=== PATIENT | male | born 1955 | race Caucasian/White ===

== ENCOUNTER → 2018-12-08 | Outpatient (CLI) | payer OTHER ==
--- NOTE | 2018-12-08 08:23 | MR ---
EXAMINATION TYPE: MR knee RT wo con DATE OF EXAM: 12/08/2018 COMPARISON: Outside right knee x-ray November 25, 2018 HISTORY: Right knee pain per order. Inner knee pain and swelling for 1 month. History of knee surge ry TECHNIQUE: Multiplanar, multisequence images of the knee is performed without IV contrast. FINDINGS: MEDIAL MENISCUS: Anterior and posterior horns are intact without tear. LATERAL MENISCUS: Anterior and posterior horns are intact without tear. CRUCIATE LIGAMENTS: The anterior and posterior cruciate ligaments are intact and unremarkable. COLLATERAL LIGAMENTS: The medial collateral ligament and lateral collateral ligament complex are inta ct and unremarkable. EXTENSOR MECHANISM: Visualized quadriceps and patellar tendons are intact. EFFUSION: No significant suprapatellar joint effusion. POPLITEAL CYST: No popliteal/dominguez cyst. TRICOMPARTMENT SPACES: Mild to moderate tricompartment joint space loss is present most prominent pat ellofemoral compartment. No significant spurring is seen. CARTILAGE: There is some cartilaginous fissuring medial tibiofemoral compartment seen best sagittal i mage 10. Single focus of chondromalacia patella with full-thickness cleft sagittal image 14 is noted. BONE MARROW SIGNAL: At level of cartilaginous loss medial tibiofemoral compartment there is heterogen eous diminished T1 and increased T2 signal involving the lateral aspect of the distal medial femoral upper condyle measuring roughly 1.4 cm AP diameter sagittal image 9 x 1.0 cm transversely coronal anjali ge 19. At level of chondromalacia patella there is focus of heterogeneous increased T2 signal sagittal image 14 and axial image 18 involving the posterior patellar pole. OTHER: No additional significant abnormality is appreciated. IMPRESSION: 1. No meniscal or ligamentous tear is seen. 2. Mild to moderate tricompartment degenerative changes, focal osteochondral involvement patellofemor al and medial tibiofemoral compartments noted as detailed above.
== END | disposition home or self-care (01) ==
LOC: RADMRIMAIN 06:07
PROVIDERS: ATTEND Orthopaedic Surgery
DX: M17.11 Unilateral primary osteoarthritis, right knee (principal)

== ENCOUNTER 2020-04-01 10:37 | Emergency (ER) | payer OTHER ==
[2020-04-01 10:46] VITALS: RESP 18; TEMP 97.5
[2020-04-01] MEDS ORDERED: SODIUM CHLORIDE 0.9% 1,000 ML IV STA ×2 (11:03)
[2020-04-01] MEDS ORDERED: ONDANSETRON 4 MG/2 ML VIAL IVP STA (11:03)
[2020-04-01] MEDS ORDERED: MORPHINE SULFATE 2 MG/ML SYRINGE IVP STA (11:03)
[2020-04-01] MEDS ORDERED: KETOROLAC 30 MG/ML 1 ML VIAL IVP STA (11:03)
[2020-04-01 11:21] LABS: Basophils % (A) 0 %; Eosinophils # (A) 0.1 k/uL (0-0.7); Eosinophils % (A) 2 %; HCT 44.8 % (39.0-53.0); HGB 14.9 gm/dL (13.0-17.5); Lymphocytes # (A) 1.2 k/uL (1.0-4.8); Lymphocytes % (A) 14 %; MCHC 33.3 g/dL (31.0-37.0); MCV 93.1 fL (80.0-100.0); Mean Platelet Volume 6.8; Monocytes # (A) 0.7 k/uL (0-1.0); Monocytes % (A) 8 %; Neutrophils # (A) 6.3 k/uL (1.3-7.7); Neutrophils % (A) 74 %; Platelet Count 258 k/uL (150-450); RBC 4.81 m/uL (4.30-5.90); RDW 12.3 % (11.5-15.5); WBC 8.5 k/uL (3.8-10.6)
--- NOTE | 2020-04-01 11:29 | ED ---
Abdominal Pain HPI - General Chief Complaint: Abdominal Pain Stated Complaint: diverticulitis Time Seen by Provider: 04/01/20 10:49 Source: patient, RN notes reviewed, old records reviewed Mode of arrival: ambulatory Limitations: no limitations - History of Present Illness Initial Comments: Patient is a pleasant 64-year-old male presents emergency from today with chief complaint of left lower quadrant lower quadrant abdominal pain, states that he's had some episodes of diarrhea the past few days.. He is concerned that he has diverticulitis. Habits the past. Patient reports these had no current fevers or chills but didn't fill low-grade temperatures for the past week. Patient states that he has no chest pain shortness breath or cough. - Related Data Home Medications Medication Instructions Recorded Confirmed ALPRAZolam [Xanax] 0.5 mg PO BID PRN 04/01/20 04/01/20 Acetaminophen Tab [Tylenol] 650 mg PO Q6H PRN 04/01/20 04/01/20 Cholecalciferol [Vitamin D3 (25 1,000 unit PO DAILY 04/01/20 04/01/20 Mcg = 1000 Iu)] Citalopram Hydrobromide 20 mg PO DAILY 04/01/20 04/01/20 [Citalopram HBr] Fish Oil/Dha/Epa [Fish Oil 1,200 1 each PO DAILY 04/01/20 04/01/20 mg Fish Oil] Ibuprofen [Advil] 200 mg PO Q8H PRN 04/01/20 04/01/20 Montelukast [Singulair] 10 mg PO HS 04/01/20 04/01/20 Multivitamins, Thera [Multivitamin 1 tab PO DAILY 04/01/20 04/01/20 (formulary)] Previous Rx's Medication Instructions Recorded Amoxic-Pot Clav 875-125Mg 1 tab PO BID 10 Days #20 tab 04/01/20 [Augmentin 875-125] Allergies Allergy/AdvReac Type Severity Reaction Status Date / Time No Known Allergies Allergy Verified 04/01/20 11:39 Review of Systems ROS Statement: Those systems with pertinent positive or pertinent negative responses have been documented in the HPI. ROS Other: All systems not noted in ROS Statement are negative. 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 Past Psychological History: Anxiety Smoking Status: Former smoker Past Alcohol Use History: Occasional Past Drug Use History: Marijuana General Exam - General Exam Comments Initial Comments: Alert and oriented 64-year-old male. No distress. Limitations: no limitations Head exam: Present: atraumatic, normocephalic, normal inspection Eye exam: Present: normal appearance, PERRL, EOMI. Absent: scleral icterus, conjunctival injection, periorbital swelling ENT exam: Present: normal exam, mucous membranes moist Neck exam: Present: normal inspection. Absent: tenderness, meningismus, lymphadenopathy Respiratory exam: Present: normal lung sounds bilaterally. Absent: respiratory distress, wheezes, rales, rhonchi, stridor Cardiovascular Exam: Present: regular rate GI/Abdominal exam: Present: soft, tenderness (Left lower quadrant tenderness), normal bowel sounds. Absent: distended, guarding, rebound, rigid Extremities exam: Present: normal inspection, full ROM, normal capillary refill. Absent: tenderness, pedal edema, joint swelling, calf tenderness Back exam: Present: normal inspection Neurological exam: Present: alert, oriented X3, CN II-XII intact Psychiatric exam: Present: normal affect, normal mood Skin exam: Present: warm, dry, intact, normal color. Absent: rash Course Vital Signs 04/01/20 04/01/20 10:42 13:01 Temperature 97.5 F L Pulse Rate 86 69 Respiratory 18 18 Rate Blood Pressure 120/79 100/62 O2 Sat by Pulse 98 98 Oximetry Medical Decision Making - Medical Decision Making 64-year-old male presents emergency room CO2 plan of lower abdominal pain, comes Patient after having some diarrhea. His concern for diverticulitis. Blood work was reviewed and unremarkable. UA and pelvic testing are negative. Due to persistent tenderness Patient had computed tomography scan completed. There is evidence of a complicated diverticular disease. Patient will be certain this time, states that he has an adverse reaction with Flagyl so Patient will be prescribed Augmentin. Discussed close follow-up with primary care doctor and all questions were answered. Return parameters were discussed. - Lab Data Result diagrams: 04/01/20 10:50 04/01/20 10:50 Lab Results 04/01/20 04/01/20 04/01/20 Range/Units 10:50 10:50 10:50 WBC 8.5 (3.8-10.6) k/uL RBC 4.81 (4.30-5.90) m/uL Hgb 14.9 (13.0-17.5) gm/dL Hct 44.8 (39.0-53.0) % MCV 93.1 (80.0-100.0) fL MCH 31.0 (25.0-35.0) pg MCHC 33.3 (31.0-37.0) g/dL RDW 12.3 (11.5-15.5) % Plt Count 258 (150-450) k/uL Neutrophils % 74 % Lymphocytes % 14 % Monocytes % 8 % Eosinophils % 2 % Basophils % 0 % Neutrophils # 6.3 (1.3-7.7) k/uL Lymphocytes # 1.2 (1.0-4.8) k/uL Monocytes # 0.7 (0-1.0) k/uL Eosinophils # 0.1 (0-0.7) k/uL Basophils # 0.0 (0-0.2) k/uL PT 9.7 (9.0-12.0) sec INR 0.9 (<1.2) APTT 23.6 (22.0-30.0) sec Sodium 135 L (137-145) mmol/L Potassium 4.1 (3.5-5.1) mmol/L Chloride 102 (98-107) mmol/L Carbon Dioxide 22 (22-30) mmol/L Anion Gap 11 mmol/L BUN 13 (9-20) mg/dL Creatinine 0.76 (0.66-1.25) mg/dL Est GFR (CKD-EPI)AfAm >90 (>60 ml/min/1.73 sqM) Est GFR (CKD-EPI)NonAf >90 (>60 ml/min/1.73 sqM) Glucose 108 H (74-99) mg/dL Plasma Lactic Acid Ant (0.7-2.0) mmol/L Calcium 9.4 (8.4-10.2) mg/dL Magnesium 2.1 (1.6-2.3) mg/dL Total Bilirubin 0.9 (0.2-1.3) mg/dL AST 33 (17-59) U/L ALT 37 (4-49) U/L Alkaline Phosphatase 63 (38-126) U/L Total Protein 7.3 (6.3-8.2) g/dL Albumin 4.4 (3.5-5.0) g/dL Amylase 57 (30-110) U/L Lipase 98 (23-300) U/L Coronavirus (PCR) (Not Detectd) 04/01/20 04/01/20 Range/Units 10:50 11:30 WBC (3.8-10.6) k/uL RBC (4.30-5.90) m/uL Hgb (13.0-17.5) gm/dL Hct (39.0-53.0) % MCV (80.0-100.0) fL MCH (25.0-35.0) pg MCHC (31.0-37.0) g/dL RDW (11.5-15.5) % Plt Count (150-450) k/uL Neutrophils % % Lymphocytes % % Monocytes % % Eosinophils % % Basophils % % Neutrophils # (1.3-7.7) k/uL Lymphocytes # (1.0-4.8) k/uL Monocytes # (0-1.0) k/uL Eosinophils # (0-0.7) k/uL Basophils # (0-0.2) k/uL PT (9.0-12.0) sec INR (<1.2) APTT (22.0-30.0) sec Sodium (137-145) mmol/L Potassium (3.5-5.1) mmol/L Chloride (98-107) mmol/L Carbon Dioxide (22-30) mmol/L Anion Gap mmol/L BUN (9-20) mg/dL Creatinine (0.66-1.25) mg/dL Est GFR (CKD-EPI)AfAm (>60 ml/min/1.73 sqM) Est GFR (CKD-EPI)NonAf (>60 ml/min/1.73 sqM) Glucose (74-99) mg/dL Plasma Lactic Acid Ant 1.0 (0.7-2.0) mmol/L Calcium (8.4-10.2) mg/dL Magnesium (1.6-2.3) mg/dL Total Bilirubin (0.2-1.3) mg/dL AST (17-59) U/L ALT (4-49) U/L Alkaline Phosphatase (38-126) U/L Total Protein (6.3-8.2) g/dL Albumin (3.5-5.0) g/dL Amylase (30-110) U/L Lipase (23-300) U/L Coronavirus (PCR) Not Detected (Not Detectd) 04/01/20 11:29 EKG shows normal sinus rhythm abnormal EKG. Ventricular rate of 76 minute period. Was 152 ms. QS Patient is 86 ms. QT QTc is 46/456 ms. - Radiology Data Radiology results: report reviewed CC she is uncomplicated diverticular disease of the colon. Small sliding hiatal hernia. Degenerative changes and spine Disposition Clinical Impression: Diverticulitis Disposition: HOME SELF-CARE Condition: Good Instructions (If sedation given, give patient instructions): Diverticulitis (ED), Diverticulitis Diet (ED) Additional Instructions: Patient advised to complete the entire course of antibiotic as prescribed. Following up with your primary care physician. Return to the ED if any alarming signs or symptoms occur. Prescriptions: Amoxic-Pot Clav 875-125Mg [Augmentin 875-125] 1 tab PO BID 10 Days #20 tab Is patient prescribed a controlled substance at d/c from ED?: No Referrals: Ochoa Jones MD [Primary Care Provider] - 1-2 days Time of Disposition: 13:09
[2020-04-01 11:31] LABS: ALT 37 U/L (4-49); AST 33 U/L (17-59); African American GFR (CKD) >90 (>60 ml/min/1.73 sqM); Albumin 4.4 g/dL (3.5-5.0); Alkaline Phosphatase 63 U/L (38-126); Amylase 57 U/L (30-110); Anion Gap 11 mmol/L; Blood Urea Nitrogen 13 mg/dL (9-20); Calcium 9.4 mg/dL (8.4-10.2); Carbon Dioxide 22 mmol/L (22-30); Chloride 102 mmol/L (98-107); Glucose 108 mg/dL (74-99); Magnesium 2.1 mg/dL (1.6-2.3); Non-African American GFR(CKD) >90 (>60 ml/min/1.73 sqM); Potassium 4.1 mmol/L (3.5-5.1); Sodium 135 mmol/L (137-145); Total Bilirubin 0.9 mg/dL (0.2-1.3); Total Protein 7.3 g/dL (6.3-8.2)
[2020-04-01 11:41] LABS: INR 0.9 (<1.2); Partial Thromboplastin Time 23.6 sec (22.0-30.0); Prothrombin Time 9.7 sec (9.0-12.0)
--- NOTE | 2020-04-01 12:53 | CT ---
EXAMINATION TYPE: CT abdomen pelvis w con DATE OF EXAM: 04/01/2020 REFERENCE: NONE HISTORY: LLQ pain HISTORY: LLQ pain, history of diverticulitis CT DLP: 1207 mGy Automated exposure control for dose reduction was used. TECHNIQUE: Helical acquisition through the abdomen and pelvis was obtained following the oral ingesti on of without Oral Contrast and following intravenous administration of 100 mL of Isovue 300. The onel a was reformatted in axial, coronal and sagittal projections. FINDINGS: Visualized portions of the lungs are clear. There is no pleural or pericardial fluid. The heart is not enlarged. There is a small sliding hiatal hernia present. Within the abdomen, the liver, spleen and gallbladder appear normal. Both adrenal glands appear kleber l. The pancreas is unremarkable. Both kidneys demonstrate function and appear morphologically normal. There is no significant retroperitoneal, iliac or inguinal adenopathy. The bladder is unremarkable. There are multiple prostate seeds within the prostate gland. There is diverticular change involving the sigmoid colon with scattered diverticula elsewhere through out the left side of the colon but without evidence of diverticulitis. The appendix is normal. Small bowel loops are within normal limits in size. There is no free fluid and no free air. There is degenerative disc disease and facet arthropathy as well as minor hypertrophic spondylosis wi thin the spine. IMPRESSION: 1. UNCOMPLICATED DIVERTICULAR DISEASE OF THE SIGMOID:. 2. SMALL, SLIDING HIATAL HERNIA. 3. DEGENERATIVE CHANGES WITHIN THE SPINE.
[2020-04-01 13:02] VITALS: BP 100/62; PULSE 69
[2020-04-01] MEDS ORDERED: AMOXIC-POT CLAV 875MG STARTER PACK 2 TAB BTL PO STA (13:07)
[2020-04-01] MEDS ORDERED: ACET/COD 300 MG/30 MG STARTER PACK 6 TAB BTL PO STA (13:07)
== END 2020-04-01 13:45 | disposition home or self-care (01) ==
LOC: EC 10:37
DX: K57.32 Diverticulitis of large intestine without perforation or abscess without bleeding (principal); F41.9 Anxiety disorder, unspecified; Z79.51 Long term (current) use of inhaled steroids; Z79.899 Other long term (current) drug therapy; Z87.891 Personal history of nicotine dependence; Z85.46 Personal history of malignant neoplasm of prostate
CPT/HCPCS: 36415; 93005; 80053; 82150; 83605; 83690; 83735; 85025; 85610; 85730; 87635; 74177; 99285; 96374; 96375 ×2; 96361 ×2; J2405; J1885; J2270; Q9967

== ENCOUNTER → 2021-11-26 | Outpatient (CLI) | payer OTHER ==
[2021-11-26 16:29] LABS: ALT 20 U/L (10-49); AST 16 U/L (14-35); African American GFR (CKD) 99.4 (60.0-200.0); Albumin 4.4 g/dL (3.8-4.9); Albumin/Globulin Ratio 2.25 (1.60-3.17); Alkaline Phosphatase 87 U/L (41-126); BUN/Creat Ratio 20.41 Ratio (12.00-20.00); Blood Urea Nitrogen 19.1 mg/dL (9.0-27.0); Calcium 9.3 mg/dL (8.7-10.3); Carbon Dioxide 22.5 mmol/L (20.0-27.5); Chloride 101 mmol/L (96-109); Chol/HDL Ratio 4.75 Ratio; Glucose 104 mg/dL (70-110); LDL Cholesterol,Calculated 159.3 mg/dL (0.0-131.0); Non-African American GFR(CKD) 85.8 (60.0-200.0); Potassium 4.5 mmol/L (3.5-5.5); Sodium 136 mmol/L (135-145); Total Protein 6.4 g/dL (6.2-8.2); VLDL Calculation 16.82 mg/dL (5.00-40.00)
[2021-11-26 16:32] LABS: PSA Annual Screen <0.014 ng/mL (0.000-4.000)
== END | disposition home or self-care (01) ==
LOC: LABWHC1 07:39
PROVIDERS: ATTEND Nurse Practitioner Adult Health
DX: E78.5 Hyperlipidemia, unspecified (principal); F33.9 Major depressive disorder, recurrent, unspecified
CPT/HCPCS: 80061; 80053; 36415; G0103

== ENCOUNTER → 2025-03-01 | Outpatient (CLI) | payer MEDICARE ==
--- NOTE | 2025-03-01 08:09 | US ---
EXAMINATION TYPE: US Aorta Screening DATE OF EXAM: 03/01/2025 COMPARISON: CT: 01/10/23 CLINICAL INDICATION: Male, 69 years old with history of Z13.6 ENCOUNTER FOR SCREENING FOR CARDIOVASCU LAR D; screening TECHNIQUE: Multiple sonographic images of the abdominal aorta are obtained with grayscale and color D oppler imaging. FINDINGS: EXAM MEASUREMENTS: Abdominal Aorta: Proximal: 2.6 x 2.7cm Mid: 2.4 x 2.2cm Distal: 2.1 x 1.8cm Bifurcation: Right Iliac: 1.2 x 1.3cm Left Iliac: 1.1 x 0.9cm [employer] NOTES: No AAA seen on today's study. The aorta is successfully visualized thru the bifurcation. IMPRESSION: No evidence for aortic aneurysm. No further workup recommended for negative screening aortic aneurysm ultrasound. [email or web address] [facility], , 03/01/2025 8:06 AM
== END | disposition home or self-care (01) ==
LOC: RADUSWWP 07:30
PROVIDERS: ATTEND Internal Medicine
DX: Z13.6 Encounter for screening for cardiovascular disorders (principal)
CPT/HCPCS: 76706